=== PATIENT | female | born 1950 | race African-American/Black ===

== ENCOUNTER 2018-02-05 13:21 | Inpatient (IN) | payer MEDICARE ==
[~2018-02-05] VITALS: Ht 180.3 cm
[~2018-02-05 13:21] MED LIST: ARIP441S IM; OLAN10TA3 PO; OLAN5TAB2 PO; TEMA15CA PO
[2018-02-05] MEDS: DiphenhydrAMINE HCL 50 MG/ML VIAL IM ONE ×2 (14:42→16:20)
[2018-02-05] MEDS: LORazepam 2 MG/ML VIAL IM ONE ×2 (14:42→16:20)
[2018-02-05] MEDS: HALOPERIDOL LACTATE 5 MG/ML VIAL IM ONE ×2 (14:43→16:23)
[2018-02-05] MEDS ORDERED: ZOLPIDEM TARTRATE 10 MG TABLET PO PRN (14:45)
[2018-02-05] MEDS ORDERED: HALOPERIDOL 5 MG TABLET PO PRN (14:45)
[2018-02-05 17:14] LABS: BASOPHILS % (AUTO) 0.3 % (0.0-2.0); EOSINOPHILS % (AUTO) 1.4 % (1.0-6.0); HEMATOCRIT 39.2 % (36-46); HEMOGLOBIN 13.2 g/dL (12.0-16.0); LYMPHOCYTES # (AUTO) 1.8 K/uL (1.0-4.8); LYMPHOCYTES % (AUTO) 31.2 % (22.0-44.0); MEAN CORPUSCULAR HEMOGLOBIN 29.4 pg (26.0-34.0); MEAN CORPUSCULAR HGB CONC 33.6 G/dL (31.0-37.0); MEAN CORPUSCULAR VOLUME 88 fL (80-100); MONOCYTES # (AUTO) 0.4 K/uL (0.1-1.0); MONOCYTES % (AUTO) 6.7 % (2.0-9.0); NEUTROPHILS # (AUTO) 3.6 K/uL (1.8-7.7); NEUTROPHILS % (AUTO) 60.4 % (40.0-70.0); PLATELET COUNT (AUTO) 255 K/uL (150-450); RED BLOOD CELL COUNT(AUTO) 4.48 MIL/uL (4.00-5.20); RED CELL DISTRIBUTION WIDTH 15.2 % (11.5-14.5)
[2018-02-05 17:18] LABS: ANION GAP 7 mmol/L (8-16); CALCIUM, TOTAL 9.6 mg/dL (8.8-10.5); CARBON DIOXIDE 29 mmol/L (22-29); CHLORIDE 105 mmol/L (98-107); CREATININE 0.66 mg/dL (0.60-1.30); GLOMERULAR FILTR. RATE CALC > 60 mL/min (>60); GLUCOSE,RANDOM 86 mg/dL (70-110); POTASSIUM 4.2 mmol/L (3.5-5.1); SODIUM SERUM 141 mmol/L (136-145); UREA NITROGEN, BLOOD 17 mg/dL (7-18)
[2018-02-05 17:25] LABS: ALANINE AMINOTRANSFERASE 38 U/L (12-78); ALBUMIN 3.5 g/dL (3.4-5.0); ALKALINE PHOSPHATASE 91 U/L (46-116); ASPARTATE AMINOTRANSFERASE 23 U/L (15-37); BILIRUBIN,TOTAL 0.2 mg/dL (0.1-1.0); TOTAL PROTEIN, SERUM 7.4 g/dL (6.4-8.2)
[2018-02-05 18:45] VITALS: BP 147/83
[2018-02-05] MEDS: TEMAZEPAM 15 MG CAPSULE PO SCH (20:23)
[2018-02-05] MEDS: OLANZapine 10 MG TABLET PO SCH (20:24)
[2018-02-06] MEDS: OLANZapine 5 MG TABLET PO SCH (09:10)
[2018-02-06] MEDS ORDERED: DiphenhydrAMINE HCL 50 MG/ML VIAL ONE (12:08)
[2018-02-06] MEDS ORDERED: LORazepam 2 MG/ML VIAL IM ONE (12:15)
[2018-02-06] MEDS ORDERED: HALOPERIDOL LACTATE 5 MG/ML VIAL IM ONE (12:15)
[2018-02-06] MEDS ORDERED: DiphenhydrAMINE HCL 50 MG/ML VIAL IM ONE (12:15)
[2018-02-06] MEDS ORDERED: ALBUTEROL SULFATE HFA 90 MCG/PUFF 8 GM INHALER IH PRN (16:30)
[2018-02-06] MEDS ORDERED: ACETAMINOPHEN 325 MG TABLET PO PRN (16:30)
[2018-02-06] MEDS ORDERED: IBUPROFEN 400 MG TABLET PO PRN (16:30)
[2018-02-06] MEDS: OLANZapine 10 MG TABLET PO SCH (19:59)
[2018-02-06] MEDS: TEMAZEPAM 15 MG CAPSULE PO SCH (20:01)
[2018-02-07] MEDS: OLANZapine 5 MG TABLET PO SCH (07:50)
[2018-02-07] MEDS: TEMAZEPAM 15 MG CAPSULE PO SCH (21:00)
[2018-02-07] MEDS: OLANZapine 10 MG TABLET PO SCH (22:19)
[2018-02-08] MEDS: LORazepam 2 MG TABLET PO PRN (09:00)
[2018-02-08] MEDS: OLANZapine 5 MG TABLET PO SCH (09:00)
[2018-02-08] MEDS: OLANZapine 10 MG TABLET PO SCH (20:38)
[2018-02-08] MEDS: TEMAZEPAM 15 MG CAPSULE PO SCH (20:39)
[2018-02-09] MEDS: OLANZapine 5 MG TABLET PO SCH (08:14)
[2018-02-09] MEDS: LORazepam 2 MG TABLET PO PRN (08:14)
[2018-02-09 17:11] VITALS: BP 146/86
[2018-02-09] MEDS: TEMAZEPAM 15 MG CAPSULE PO SCH (21:00)
[2018-02-09] MEDS: OLANZapine 10 MG TABLET PO SCH (21:56)
[2018-02-10] MEDS: LORazepam 2 MG TABLET PO PRN (08:36)
[2018-02-10] MEDS: OLANZapine 5 MG TABLET PO SCH (08:37)
[2018-02-10] MEDS: TEMAZEPAM 15 MG CAPSULE PO SCH (21:00)
[2018-02-10] MEDS: OLANZapine 10 MG TABLET PO SCH (21:59)
[2018-02-11] MEDS: OLANZapine 5 MG TABLET PO SCH (08:36)
[2018-02-11] MEDS: OLANZapine 10 MG TABLET PO SCH (20:04)
[2018-02-11] MEDS: TEMAZEPAM 15 MG CAPSULE PO SCH (21:00)
[2018-02-12] MEDS: OLANZapine 5 MG TABLET PO SCH (08:51)
[2018-02-12] MEDS: LORazepam 2 MG TABLET PO PRN (08:51)
[2018-02-12] MEDS: TEMAZEPAM 15 MG CAPSULE PO SCH (20:22)
[2018-02-12] MEDS: OLANZapine 10 MG TABLET PO SCH (20:22)
[2018-02-13] MEDS: OLANZapine 5 MG TABLET PO SCH (08:32)
[2018-02-13] MEDS: OLANZapine 10 MG TABLET PO SCH (20:59)
[2018-02-13] MEDS: TEMAZEPAM 15 MG CAPSULE PO SCH (21:00)
[2018-02-14] MEDS: OLANZapine 5 MG TABLET PO SCH (08:27)
[2018-02-14] MEDS: OLANZapine 10 MG TABLET PO SCH (20:40)
[2018-02-14] MEDS: TEMAZEPAM 15 MG CAPSULE PO SCH (20:42)
[2018-02-15] MEDS: OLANZapine 5 MG TABLET PO SCH (08:16)
[2018-02-15] MEDS ORDERED: ARIPIPRAZOLE LAUROXIL 441 MG/1.6 ML IM SCH (09:00)
[2018-02-15] MEDS: OLANZapine 10 MG TABLET PO SCH (20:43)
[2018-02-15] MEDS: TEMAZEPAM 15 MG CAPSULE PO SCH (20:43)
[2018-02-16] MEDS: OLANZapine 5 MG TABLET PO SCH (10:10)
[2018-02-16] MEDS: TEMAZEPAM 15 MG CAPSULE PO SCH (21:00)
[2018-02-16] MEDS: OLANZapine 10 MG TABLET PO SCH (21:12)
[2018-02-17] MEDS: OLANZapine 5 MG TABLET PO SCH (08:31)
[2018-02-17] MEDS: OLANZapine 10 MG TABLET PO SCH (20:44)
[2018-02-18] MEDS: OLANZapine 5 MG TABLET PO SCH (09:12)
[2018-02-18 16:30] VITALS: BP 138/89
[2018-02-18] MEDS: OLANZapine 10 MG TABLET PO SCH (20:54)
[2018-02-19] MEDS: OLANZapine 5 MG TABLET PO SCH (08:27)
[2018-02-19] MEDS: OLANZapine 10 MG TABLET PO SCH (19:59)
[2018-02-20 03:08] VITALS: BP 142/88
[2018-02-20 08:17] LABS: CREATINE KINASE MB 3.3 ng/mL (0-5); CREATINE KINASE, TOTAL 208 U/L (26-192)
[2018-02-20] MEDS: OLANZapine 5 MG TABLET PO SCH (08:50)
[2018-02-20] MEDS: OLANZapine 10 MG TABLET PO SCH (20:06)
[2018-02-21] MEDS: OLANZapine 5 MG TABLET PO SCH (09:58)
[2018-02-21] MEDS: OLANZapine 10 MG TABLET PO SCH (20:02)
[2018-02-21] MEDS ORDERED: BISACODYL 5 MG EC TABLET PO PRN (23:45)
[2018-02-22] MEDS: OLANZapine 5 MG TABLET PO SCH (08:15)
[2018-02-22] MEDS: OLANZapine 10 MG TABLET PO SCH (20:18)
[2018-02-23] MEDS: OLANZapine 5 MG TABLET PO SCH (09:47)
[2018-02-23] MEDS: OLANZapine 10 MG TABLET PO SCH (20:12)
[2018-02-24] MEDS: OLANZapine 5 MG TABLET PO SCH (08:15)
[2018-02-24] MEDS: OLANZapine 10 MG TABLET PO SCH (20:12)
[2018-02-25] MEDS: OLANZapine 5 MG TABLET PO SCH (08:54)
== END 2018-02-25 13:11 | disposition home or self-care (01) | DRG 885 ==
LOC: EMS 13:23 → 3EX 15:39
PROVIDERS: ATTEND Psychiatry & Neurology Child & Adolescent Psychiatry
DX: F20.0 Paranoid schizophrenia (principal); J44.9 Chronic obstructive pulmonary disease, unspecified; R74.0 Nonspecific elevation of levels of transaminase and lactic acid dehydrogenase [LDH]; G47.00 Insomnia, unspecified; I10 Essential (primary) hypertension; K59.00 Constipation, unspecified; R00.0 Tachycardia, unspecified; R79.89 Other specified abnormal findings of blood chemistry; F17.210 Nicotine dependence, cigarettes, uncomplicated; Z59.0 Homelessness; Z95.0 Presence of cardiac pacemaker; Z79.899 Other long term (current) drug therapy; Z88.8 Allergy status to other drugs, medicaments and biological substances
CPT/HCPCS: 80074; 83735; 87081; 93005; 96372; 99285; G0480; J1200; J1630; J2060; J3535

== ENCOUNTER 2018-03-15 09:53 | Inpatient (IN) | payer MEDICARE ==
[~2018-03-15] VITALS: Ht 172.7 cm; Wt 93.2 kg
[~2018-03-15 09:53] MED LIST changes: -TEMA15CA PO
[2018-03-15 10:45] LABS: BASOPHILS % (AUTO) 0.5 % (0.0-2.0); EOSINOPHILS % (AUTO) 0.6 % (1.0-6.0); HEMATOCRIT 40.3 % (36-46); HEMOGLOBIN 13.3 g/dL (12.0-16.0); LYMPHOCYTES # (AUTO) 1.1 K/uL (1.0-4.8); LYMPHOCYTES % (AUTO) 15.6 % (22.0-44.0); MEAN CORPUSCULAR HEMOGLOBIN 29.1 pg (26.0-34.0); MEAN CORPUSCULAR HGB CONC 32.9 G/dL (31.0-37.0); MEAN CORPUSCULAR VOLUME 88 fL (80-100); MONOCYTES # (AUTO) 0.4 K/uL (0.1-1.0); MONOCYTES % (AUTO) 5.2 % (2.0-9.0); NEUTROPHILS # (AUTO) 5.4 K/uL (1.8-7.7); NEUTROPHILS % (AUTO) 78.1 % (40.0-70.0); PLATELET COUNT (AUTO) 313 K/uL (150-450); RED BLOOD CELL COUNT(AUTO) 4.57 MIL/uL (4.00-5.20); RED CELL DISTRIBUTION WIDTH 15.4 % (11.5-14.5)
[2018-03-15 10:57] LABS: ANION GAP 10 mmol/L (8-16); CALCIUM, TOTAL 9.3 mg/dL (8.8-10.5); CARBON DIOXIDE 28 mmol/L (22-29); CHLORIDE 109 mmol/L (98-107); CREATININE 0.71 mg/dL (0.60-1.30); GLOMERULAR FILTR. RATE CALC > 60 mL/min (>60); GLUCOSE,RANDOM 78 mg/dL (70-110); POTASSIUM 3.8 mmol/L (3.5-5.1); SODIUM SERUM 147 mmol/L (136-145); UREA NITROGEN, BLOOD 14 mg/dL (7-18)
[2018-03-15] MEDS ORDERED: ZOLPIDEM TARTRATE 10 MG TABLET PO PRN (11:00)
[2018-03-15] MEDS ORDERED: HALOPERIDOL 5 MG TABLET PO PRN (11:00)
[2018-03-15 11:04] LABS: ALANINE AMINOTRANSFERASE 35 U/L (12-78); ALBUMIN 3.9 g/dL (3.4-5.0); ALKALINE PHOSPHATASE 94 U/L (46-116); ASPARTATE AMINOTRANSFERASE 31 U/L (15-37); BILIRUBIN,TOTAL 0.7 mg/dL (0.1-1.0); TOTAL PROTEIN, SERUM 7.2 g/dL (6.4-8.2)
[2018-03-15] MEDS ORDERED: LORazepam 2 MG/ML VIAL IM ONE (11:30)
[2018-03-15] MEDS ORDERED: HALOPERIDOL LACTATE 5 MG/ML VIAL IM ONE (11:30)
[2018-03-15] MEDS ORDERED: DiphenhydrAMINE HCL 50 MG/ML VIAL IM ONE (11:30)
[2018-03-15 13:05] VITALS: BP 156/85
[2018-03-15] MEDS ORDERED: ACETAMINOPHEN 325 MG TABLET PO PRN (15:15)
[2018-03-16] MEDS: ARIPIPRAZOLE LAUROXIL 441 MG/1.6 ML IM SCH (13:56)
[2018-03-16] MEDS: OLANZapine 5 MG TABLET PO SCH (13:56)
[2018-03-16] MEDS: TEMAZEPAM 15 MG CAPSULE PO SCH (20:29)
[2018-03-16] MEDS: OLANZapine 10 MG TABLET PO SCH (20:31)
[2018-03-17] MEDS: OLANZapine 5 MG TABLET PO SCH (08:34)
[2018-03-17] MEDS: OLANZapine 10 MG TABLET PO SCH (20:23)
[2018-03-17] MEDS: TEMAZEPAM 15 MG CAPSULE PO SCH (20:24)
[2018-03-18 06:42] LABS: BASOPHILS % (AUTO) 1.1 % (0.0-2.0); EOSINOPHILS % (AUTO) 3.5 % (1.0-6.0); HEMATOCRIT 40.3 % (36-46); HEMOGLOBIN 13.6 g/dL (12.0-16.0); LYMPHOCYTES # (AUTO) 2.6 K/uL (1.0-4.8); LYMPHOCYTES % (AUTO) 45.6 % (22.0-44.0); MEAN CORPUSCULAR HEMOGLOBIN 29.7 pg (26.0-34.0); MEAN CORPUSCULAR HGB CONC 33.7 G/dL (31.0-37.0); MEAN CORPUSCULAR VOLUME 88 fL (80-100); MONOCYTES # (AUTO) 0.5 K/uL (0.1-1.0); MONOCYTES % (AUTO) 8.3 % (2.0-9.0); NEUTROPHILS # (AUTO) 2.4 K/uL (1.8-7.7); NEUTROPHILS % (AUTO) 41.5 % (40.0-70.0); PLATELET COUNT (AUTO) 298 K/uL (150-450); RED BLOOD CELL COUNT(AUTO) 4.57 MIL/uL (4.00-5.20); RED CELL DISTRIBUTION WIDTH 14.9 % (11.5-14.5)
[2018-03-18 06:55] LABS: ALANINE AMINOTRANSFERASE 50 U/L (12-78); ALBUMIN 3.7 g/dL (3.4-5.0); ALKALINE PHOSPHATASE 93 U/L (46-116); ANION GAP 4 mmol/L (8-16); ASPARTATE AMINOTRANSFERASE 35 U/L (15-37); BILIRUBIN,TOTAL 0.3 mg/dL (0.1-1.0); CALCIUM, TOTAL 9.2 mg/dL (8.8-10.5); CARBON DIOXIDE 31 mmol/L (22-29); CHLORIDE 106 mmol/L (98-107); CHOL/HDL RATIO 2.3 (3.9-5.7); CHOLESTEROL 157 mg/dL (131-200); CREATININE 0.59 mg/dL (0.60-1.30); FREE T4 (FREE THYROXINE) 0.99 ng/dL (0.76-1.46); GLOMERULAR FILTR. RATE CALC > 60 mL/min (>60); GLUCOSE,RANDOM 81 mg/dL (70-110); HDL CHOLESTEROL 69 mg/dL (40-60); LDL CHOL (CALC.) 74 mg/dL (0-130); POTASSIUM 4.3 mmol/L (3.5-5.1); SODIUM SERUM 141 mmol/L (136-145); THYROID STIMULATING HORMONE 1.17 uIU/mL (0.36-3.74); TOTAL PROTEIN, SERUM 7.7 g/dL (6.4-8.2); TRIGLYCERIDES 71 mg/dL (15-150); UREA NITROGEN, BLOOD 7 mg/dL (7-18)
[2018-03-18] MEDS: OLANZapine 5 MG TABLET PO SCH (08:44)
[2018-03-18] MEDS: LORazepam 2 MG TABLET PO PRN (08:44)
[2018-03-18] MEDS: TEMAZEPAM 15 MG CAPSULE PO SCH (21:00)
[2018-03-18] MEDS: OLANZapine 10 MG TABLET PO SCH (21:07)
[2018-03-19] MEDS: OLANZapine 5 MG TABLET PO SCH (09:05)
[2018-03-19] MEDS: LORazepam 2 MG TABLET PO PRN (09:05)
[2018-03-19] MEDS: TEMAZEPAM 15 MG CAPSULE PO SCH (20:19)
[2018-03-19] MEDS: OLANZapine 10 MG TABLET PO SCH (20:19)
[2018-03-20] MEDS: OLANZapine 5 MG TABLET PO SCH (08:18)
[2018-03-20] MEDS: TEMAZEPAM 15 MG CAPSULE PO SCH (21:00)
[2018-03-20] MEDS: OLANZapine 10 MG TABLET PO SCH (22:58)
[2018-03-21] MEDS: OLANZapine 5 MG TABLET PO SCH (08:10)
[2018-03-21] MEDS: OLANZapine 10 MG TABLET PO SCH (20:42)
[2018-03-21] MEDS: TEMAZEPAM 15 MG CAPSULE PO SCH (20:45)
[2018-03-22] MEDS: OLANZapine 5 MG TABLET PO SCH (08:09)
[2018-03-22] MEDS: OLANZapine 10 MG TABLET PO SCH (20:43)
[2018-03-22] MEDS: TEMAZEPAM 15 MG CAPSULE PO SCH (20:46)
[2018-03-23] MEDS: OLANZapine 10 MG TABLET PO SCH ×2 (08:09→21:17)
[2018-03-23] MEDS: TEMAZEPAM 15 MG CAPSULE PO SCH (21:00)
[2018-03-24] MEDS: OLANZapine 10 MG TABLET PO SCH ×2 (08:18→20:22)
[2018-03-24] MEDS: TraZODone HCL 100 MG TABLET PO SCH (20:22)
[2018-03-25] MEDS: OLANZapine 10 MG TABLET PO SCH ×2 (09:00→21:21)
[2018-03-25] MEDS: TraZODone HCL 100 MG TABLET PO SCH (21:21)
[2018-03-26] MEDS: OLANZapine 10 MG TABLET PO SCH ×2 (08:07→20:57)
[2018-03-26] MEDS: TraZODone HCL 100 MG TABLET PO SCH (20:57)
[2018-03-27] MEDS: OLANZapine 10 MG TABLET PO SCH ×2 (08:09→20:25)
[2018-03-27] MEDS: TraZODone HCL 100 MG TABLET PO SCH (20:22)
[2018-03-28] MEDS: OLANZapine 10 MG TABLET PO SCH ×2 (07:47→21:21)
[2018-03-28] MEDS: TraZODone HCL 100 MG TABLET PO SCH (21:20)
[2018-03-29] MEDS: OLANZapine 10 MG TABLET PO SCH ×2 (08:24→20:45)
[2018-03-29] MEDS: TraZODone HCL 100 MG TABLET PO SCH (20:45)
[2018-03-30] MEDS: OLANZapine 10 MG TABLET PO SCH ×2 (08:31→21:21)
[2018-03-30] MEDS: TraZODone HCL 100 MG TABLET PO SCH (21:21)
[2018-03-31] MEDS: OLANZapine 10 MG TABLET PO SCH ×2 (08:13→20:17)
[2018-03-31] MEDS: TraZODone HCL 150 MG TABLET PO SCH (20:17)
[2018-04-01] MEDS: OLANZapine 10 MG TABLET PO SCH ×2 (09:36→20:31)
[2018-04-01] MEDS: TraZODone HCL 150 MG TABLET PO SCH (20:31)
[2018-04-02] MEDS: OLANZapine 10 MG TABLET PO SCH ×2 (07:52→20:41)
[2018-04-02 11:12] LABS: FREE T4 (FREE THYROXINE) 0.98 ng/dL (0.76-1.46); THYROID STIMULATING HORMONE 0.71 uIU/mL (0.36-3.74)
[2018-04-02] MEDS: TraZODone HCL 150 MG TABLET PO SCH (21:00)
[2018-04-03] MEDS: OLANZapine 10 MG TABLET PO SCH ×2 (08:34→22:12)
[2018-04-03] MEDS: TraZODone HCL 150 MG TABLET PO SCH (21:00)
[2018-04-04] MEDS: OLANZapine 10 MG TABLET PO SCH ×2 (09:22→20:34)
[2018-04-04] MEDS: TraZODone HCL 150 MG TABLET PO SCH (20:37)
[2018-04-05] MEDS: LORazepam 2 MG TABLET PO PRN (08:53)
[2018-04-05] MEDS: OLANZapine 10 MG TABLET PO SCH ×2 (09:46→20:36)
[2018-04-05] MEDS: TraZODone HCL 150 MG TABLET PO SCH (20:36)
[2018-04-06] MEDS: OLANZapine 10 MG TABLET PO SCH ×2 (09:29→20:09)
[2018-04-06] MEDS: TraZODone HCL 150 MG TABLET PO SCH (20:09)
[2018-04-07] MEDS: IBUPROFEN 400 MG TABLET PO PRN ×2 (02:52→12:40)
[2018-04-07] MEDS: OLANZapine 10 MG TABLET PO SCH ×2 (08:10→21:04)
[2018-04-07] MEDS: LORazepam 2 MG TABLET PO PRN (08:11)
[2018-04-07] MEDS: TraZODone HCL 150 MG TABLET PO SCH (21:03)
[2018-04-08] MEDS: IBUPROFEN 400 MG TABLET PO PRN ×2 (04:16→12:17)
[2018-04-08] MEDS: OLANZapine 10 MG TABLET PO SCH ×2 (08:28→20:11)
[2018-04-08] MEDS: TraZODone HCL 150 MG TABLET PO SCH (20:11)
[2018-04-09] MEDS: OLANZapine 10 MG TABLET PO SCH ×2 (09:12→20:00)
[2018-04-09] MEDS: TraZODone HCL 150 MG TABLET PO SCH (19:59)
[2018-04-09] MEDS: IBUPROFEN 400 MG TABLET PO PRN (20:02)
[2018-04-10] MEDS ORDERED: ZOLPIDEM TARTRATE 10 MG TABLET PO PRN (08:30)
[2018-04-10] MEDS: OLANZapine 10 MG TABLET PO SCH ×2 (09:03→20:33)
[2018-04-10] MEDS: TraZODone HCL 150 MG TABLET PO SCH (20:33)
[2018-04-11] MEDS: OLANZapine 10 MG TABLET PO SCH ×2 (09:59→20:08)
[2018-04-11] MEDS: TraZODone HCL 150 MG TABLET PO SCH (20:08)
[2018-04-12] MEDS: OLANZapine 10 MG TABLET PO SCH ×2 (08:17→20:21)
[2018-04-12] MEDS: TraZODone HCL 150 MG TABLET PO SCH (20:21)
[2018-04-13] MEDS: OLANZapine 10 MG TABLET PO SCH ×2 (08:25→20:16)
[2018-04-13] MEDS: TraZODone HCL 150 MG TABLET PO SCH (20:17)
[2018-04-14] MEDS: OLANZapine 10 MG TABLET PO SCH ×2 (08:02→20:00)
[2018-04-14] MEDS: TraZODone HCL 150 MG TABLET PO SCH (20:00)
[2018-04-15] MEDS: OLANZapine 10 MG TABLET PO SCH ×2 (09:26→20:42)
[2018-04-15] MEDS: ARIPIPRAZOLE LAUROXIL 441 MG/1.6 ML IM SCH (09:27)
[2018-04-15] MEDS: TraZODone HCL 150 MG TABLET PO SCH (20:41)
[2018-04-16] MEDS: OLANZapine 10 MG TABLET PO SCH ×2 (07:50→20:35)
[2018-04-16] MEDS: TraZODone HCL 150 MG TABLET PO SCH (20:41)
[2018-04-17] MEDS: OLANZapine 10 MG TABLET PO SCH ×2 (08:33→22:02)
[2018-04-17] MEDS: TraZODone HCL 150 MG TABLET PO SCH (22:02)
[2018-04-18] MEDS: OLANZapine 10 MG TABLET PO SCH ×2 (10:09→20:33)
[2018-04-18] MEDS: TraZODone HCL 150 MG TABLET PO SCH (20:33)
[2018-04-19] MEDS: OLANZapine 10 MG TABLET PO SCH ×2 (08:07→21:03)
[2018-04-19] MEDS: TraZODone HCL 150 MG TABLET PO SCH (21:02)
[2018-04-20] MEDS: OLANZapine 10 MG TABLET PO SCH ×2 (08:33→20:06)
[2018-04-20] MEDS: TraZODone HCL 150 MG TABLET PO SCH (20:06)
[2018-04-21] MEDS: OLANZapine 10 MG TABLET PO SCH ×2 (08:19→20:12)
[2018-04-21] MEDS: TraZODone HCL 150 MG TABLET PO SCH (20:12)
[2018-04-22] MEDS: OLANZapine 10 MG TABLET PO SCH ×2 (08:13→20:04)
[2018-04-22] MEDS: TraZODone HCL 150 MG TABLET PO SCH (20:04)
[2018-04-23] MEDS: OLANZapine 10 MG TABLET PO SCH ×2 (08:09→20:23)
[2018-04-23] MEDS: TraZODone HCL 150 MG TABLET PO SCH (20:22)
[2018-04-24] MEDS: OLANZapine 10 MG TABLET PO SCH ×2 (09:07→20:13)
[2018-04-24 09:21] LABS: ANION GAP 9 mmol/L (8-16); CALCIUM, TOTAL 9.3 mg/dL (8.8-10.5); CARBON DIOXIDE 28 mmol/L (22-29); CHLORIDE 99 mmol/L (98-107); CREATININE 0.64 mg/dL (0.60-1.30); GLOMERULAR FILTR. RATE CALC > 60 mL/min (>60); GLUCOSE,RANDOM 99 mg/dL (70-110); POTASSIUM 3.5 mmol/L (3.5-5.1); SODIUM SERUM 136 mmol/L (136-145); UREA NITROGEN, BLOOD 8 mg/dL (7-18)
[2018-04-24] MEDS: TraZODone HCL 150 MG TABLET PO SCH (20:13)
[2018-04-25] MEDS: OLANZapine 10 MG TABLET PO SCH ×2 (10:13→20:36)
[2018-04-25] MEDS: TraZODone HCL 150 MG TABLET PO SCH (20:36)
[2018-04-26] MEDS: OLANZapine 10 MG TABLET PO SCH ×2 (08:13→20:29)
[2018-04-26] MEDS: TraZODone HCL 150 MG TABLET PO SCH (20:29)
[2018-04-27] MEDS: OLANZapine 10 MG TABLET PO SCH ×2 (08:59→20:21)
[2018-04-27] MEDS: TraZODone HCL 150 MG TABLET PO SCH (20:21)
[2018-04-28] MEDS: OLANZapine 10 MG TABLET PO SCH ×2 (08:14→20:54)
[2018-04-28] MEDS: TraZODone HCL 150 MG TABLET PO SCH (20:54)
[2018-04-29] MEDS: OLANZapine 10 MG TABLET PO SCH ×2 (08:23→20:26)
[2018-04-29] MEDS: TraZODone HCL 150 MG TABLET PO SCH (20:26)
[2018-04-30] MEDS: OLANZapine 10 MG TABLET PO SCH ×2 (09:42→20:31)
[2018-04-30] MEDS: TraZODone HCL 150 MG TABLET PO SCH (20:31)
[2018-05-01] MEDS: OLANZapine 10 MG TABLET PO SCH ×2 (08:14→20:44)
[2018-05-01] MEDS: TraZODone HCL 150 MG TABLET PO SCH (20:44)
[2018-05-02] MEDS: OLANZapine 10 MG TABLET PO SCH ×2 (08:21→20:08)
[2018-05-02] MEDS: TraZODone HCL 150 MG TABLET PO SCH (20:08)
[2018-05-03] MEDS: OLANZapine 10 MG TABLET PO SCH ×2 (08:20→20:09)
[2018-05-03] MEDS: TraZODone HCL 150 MG TABLET PO SCH (20:09)
[2018-05-04] MEDS: OLANZapine 10 MG TABLET PO SCH ×2 (09:45→20:44)
[2018-05-04] MEDS: TraZODone HCL 150 MG TABLET PO SCH (20:44)
[2018-05-05] MEDS: OLANZapine 10 MG TABLET PO SCH ×2 (08:15→20:32)
[2018-05-05] MEDS: TraZODone HCL 150 MG TABLET PO SCH (20:32)
[2018-05-06] MEDS: OLANZapine 10 MG TABLET PO SCH (09:00)
[2018-05-06] MEDS ORDERED: TRAZ150 PO (15:07)
[2018-05-06] MEDS: TraZODone HCL 150 MG TABLET PO SCH (20:20)
[2018-05-06] MEDS ORDERED: OLANZapine 10 MG RAPDIS TABLET PO SCH (21:00)
[2018-05-07] MEDS ORDERED: OLAN10TA6 PO ×2 (06:25)
[2018-05-07] MEDS ORDERED: OLANZapine 10 MG RAPDIS TABLET PO SCH (09:00)
== END 2018-05-07 10:55 | DRG 885 ==
LOC: EMS 09:57 → 3EX 12:33
PROVIDERS: ADMIT Psychiatry & Neurology Child & Adolescent Psychiatry; ATTEND Psychiatry & Neurology Child & Adolescent Psychiatry
DX: F20.0 Paranoid schizophrenia (principal); E87.0 Hyperosmolality and hypernatremia; I10 Essential (primary) hypertension; J44.9 Chronic obstructive pulmonary disease, unspecified; F17.210 Nicotine dependence, cigarettes, uncomplicated; G47.00 Insomnia, unspecified; H05.20 Unspecified exophthalmos; Z91.14 Patient's other noncompliance with medication regimen; Z79.899 Other long term (current) drug therapy; Z95.0 Presence of cardiac pacemaker; Z59.0 Homelessness; Z88.8 Allergy status to other drugs, medicaments and biological substances
CPT/HCPCS: 83036; 84439; 84443; 87081; 96372; 99285; G0480; J1200; J1630; J2060

== ENCOUNTER 2018-05-17 21:51 | Emergency (ER) | payer MEDICARE ==
[~2018-05-17] VITALS: Ht 172.7 cm; Wt 95.5 kg
[~2018-05-17 21:51] MED LIST changes: +OLAN10TA6 PO; -OLAN5TAB2 PO; +TRAZ150 PO
[2018-05-18] MEDS ORDERED: DiphenhydrAMINE HCL 50 MG/ML VIAL IM ONE
[2018-05-18] MEDS ORDERED: HALOPERIDOL LACTATE 5 MG/ML VIAL IM ONE
[2018-05-18] MEDS ORDERED: LORazepam 2 MG/ML VIAL IM ONE
[2018-05-18 02:31] LABS: EOSINOPHILS % (AUTO) 2.8 % (1.0-6.0); HEMATOCRIT 42.7 % (36-46); HEMOGLOBIN 14.2 g/dL (12.0-16.0); LYMPHOCYTES # (AUTO) 2.4 K/uL (1.0-4.8); LYMPHOCYTES % (AUTO) 34.6 % (22.0-44.0); MEAN CORPUSCULAR HEMOGLOBIN 28.8 pg (26.0-34.0); MEAN CORPUSCULAR HGB CONC 33.2 G/dL (31.0-37.0); MEAN CORPUSCULAR VOLUME 87 fL (80-100); MONOCYTES # (AUTO) 0.5 K/uL (0.1-1.0); MONOCYTES % (AUTO) 7.1 % (2.0-9.0); NEUTROPHILS # (AUTO) 3.9 K/uL (1.8-7.7); NEUTROPHILS % (AUTO) 55.5 % (40.0-70.0); PLATELET COUNT (AUTO) 294 K/uL (150-450); RED BLOOD CELL COUNT(AUTO) 4.92 MIL/uL (4.00-5.20); RED CELL DISTRIBUTION WIDTH 14.6 % (11.5-14.5)
[2018-05-18 02:40] LABS: ANION GAP 9 mmol/L (8-16); CALCIUM, TOTAL 9.8 mg/dL (8.8-10.5); CARBON DIOXIDE 29 mmol/L (22-29); CHLORIDE 103 mmol/L (98-107); CREATININE 0.63 mg/dL (0.60-1.30); GLOMERULAR FILTR. RATE CALC > 60 mL/min (>60); GLUCOSE,RANDOM 82 mg/dL (70-110); POTASSIUM 3.8 mmol/L (3.5-5.1); SODIUM SERUM 141 mmol/L (136-145); UREA NITROGEN, BLOOD 13 mg/dL (7-18)
[2018-05-18 02:45] LABS: ALANINE AMINOTRANSFERASE 24 U/L (12-78); ALKALINE PHOSPHATASE 114 U/L (46-116); ASPARTATE AMINOTRANSFERASE 16 U/L (15-37); BILIRUBIN,TOTAL 0.5 mg/dL (0.1-1.0)
[2018-05-18 02:50] LABS: PLATELET MORPHOLOGY COMMENT LARGE PLTS PRESENT
[2018-05-18 05:02] LABS: AMPHET/METH SCREEN,URINE NEGATIVE (NEGATIVE); BARBITURATE SCREEN, URINE NEGATIVE (NEGATIVE); BENZODIAZEPINES SCREEN,URINE NEGATIVE (NEGATIVE); CANNABINOID SCREEN,URINE NEGATIVE (NEGATIVE); COCAINE SCREEN,URINE NEGATIVE (NEGATIVE); METHADONE SCREEN, URINE NEGATIVE (NEGATIVE); OPIATE SCREEN,URINE NEGATIVE (NEGATIVE); PHENCYCLIDINE SCREEN,URINE NEGATIVE (NEGATIVE)
[2018-05-18] MEDS ORDERED: LORazepam 2 MG TABLET PO ONE (12:00)
[2018-05-18] MEDS ORDERED: LORazepam 2 MG TABLET ONE (12:01)
[2018-05-18 15:40] VITALS: BP 123/81
== END 2018-05-18 17:46 | disposition home or self-care (01) ==
LOC: EMS 21:52
DX: F20.0 Paranoid schizophrenia (principal); F29 Unspecified psychosis not due to a substance or known physiological condition; J44.9 Chronic obstructive pulmonary disease, unspecified; I10 Essential (primary) hypertension; F17.210 Nicotine dependence, cigarettes, uncomplicated; Z95.0 Presence of cardiac pacemaker; Z88.8 Allergy status to other drugs, medicaments and biological substances
CPT/HCPCS: 36415; 71045; 74176; 80053; 80307; 85025; 96372; 99285; G0480; J1200; J1630; J2060